=== PATIENT | female | born 1965 | race Caucasian/White ===

== ENCOUNTER → 2017-07-17 | Outpatient (CLI) | payer BC ==
--- NOTE | 2017-07-17 09:37 | MM ---
Reason for exam: screening (asymptomatic). Baseline mammogram. History: Patient is postmenopausal and had first child at age 33. Took hormonal contraceptives for 10 years. Physical Findings: Nurse did not find any significant physical abnormalities on exam. MG 3D Screening Mammo W/Cad Bilateral CC and MLO view(s) were taken. The breast tissue is heterogeneously dense. This may lower the sensitivity of mammography. There is no discrete abnormality. These results were verbally communicated with the patient and result sheet given to the patient on 07/17/17. ASSESSMENT: Benign, BI-RAD 2 RECOMMENDATION: Routine screening mammogram of both breasts in 1 year.
== END | disposition home or self-care (01) ==
LOC: RADMAMWWP 08:31
PROVIDERS: ATTEND Family Medicine
DX: Z12.31 Encounter for screening mammogram for malignant neoplasm of breast (principal)
CPT/HCPCS: 77063; 77067

== ENCOUNTER → 2017-07-24 | Outpatient (CLI) | payer BC ==
--- NOTE | 2017-07-24 23:20 | MR ---
EXAMINATION TYPE: MR shoulder RT wo con DATE OF EXAM: 07/24/2017 COMPARISON: NONE HISTORY: 51-year-old female Right shoulder pain TECHNIQUE: Multiplanar, multisequence imaging of the right shoulder is performed without contrast. FINDINGS: There is abnormal increased signal within the intracapsular portion of the long head biceps tendon. T he extracapsular portion remains appropriately situated along the bicipital groove with mild tenosyno vial fluid. Heterogeneous signal of the subscapularis tendon. The majority of the tendon remains intact. Moderate degenerative joint space narrowing of marginal spurring and capsular hypertrophy at the acro mioclavicular joint. No significant mass effect onto the underlying cuff. There is partial articular and bursal sided tear of the far anterior supraspinatus tendon measuring a pproximately 1 x 1 cm. No full-thickness supraspinatus tendon tear. Infraspinatus tendon is intact. Minimal fatty streaks within the subscapularis muscle. There is a mild subacromial/subdeltoid bursal effusion. Evaluation of the glenohumeral joint shows overall maintained articular cartilage without significant joint effusion. No discrete labral tear given nonarthrographic technique and no para labral cyst. No Hill-Sachs deformity or os acromiale. Patchy red marrow can be seen in setting of anemia, obesity, smoking, and chronic disease. IMPRESSION: 1. Supraspinatus and subscapularis tendinosis. There is some partial thickness tearing of the anterio r supraspinatus tendon measuring 1 cm. No full-thickness rotator cuff tear. 2. Abnormal signal within the intracapsular portion of long head biceps tendon could represent marked tendinosis or partial tear. Mild tenosynovitis along the extracapsular portion. 3. Moderate AC joint OA and mild subacromial/subdeltoid bursal effusion, reactive versus bursitis.
== END ==
LOC: RADMRIMAIN 11:37
PROVIDERS: ATTEND Family Medicine
DX: S46.011A Strain of muscle(s) and tendon(s) of the rotator cuff of right shoulder, initial encounter (principal); R93.7 Abnormal findings on diagnostic imaging of other parts of musculoskeletal system; M65.9 Synovitis and tenosynovitis, unspecified; M19.011 Primary osteoarthritis, right shoulder

== ENCOUNTER → 2019-07-22 | Day surgery (SDC) | payer BC ==
[2019-07-20 14:39] VITALS: BMI 30.1
[~2019-07-22] MED LIST: LIDOCAINE 1% 20 ML VIAL (10MG/ML) FOR IV START INTRADERMA PRN; LIDOCAINE 1% INJ 10MG/ML (20 ML MDV) ONE; PROPOFOL 10 MG/ML 20 ML VIAL IV ONE
--- NOTE | 2019-07-22 08:39 | P.GSHP ---
History of Present Illness H&P Date: 07/22/19 CHIEF COMPLAINT: Colon screen HISTORY OF PRESENT ILLNESS: The patient is a 53-year-old female who presents for colon screen. Lower endoscopy was offered for further evaluation and management. PAST MEDICAL HISTORY: Please see list. PAST SURGICAL HISTORY: Please see list. MEDICATIONS: Please see list. ALLERGIES: Please see list. SOCIAL HISTORY: No illicit drug use FAMILY HISTORY: No reports of Crohn disease or ulcerative colitis. REVIEW OF ORGAN SYSTEMS: CONSTITUTIONAL: No reports of fevers or chills. PHYSICAL EXAM: VITAL SIGNS: Stable GENERAL: Well-developed pleasant in no acute distress. HEENT: No scleral icterus. Extraocular movements grossly intact. Moist buccal mucosa. NECK: Supple without lymphadenopathy. CHEST: Unlabored respirations. Equal bilateral excursions. CARDIOVASCULAR: Regular rate and rhythm. Distal 2+ pulses. ABDOMEN: Soft, nontender, nondistended. MUSCULOSKELETAL: No clubbing, cyanosis, or edema. ASSESSMENT: 1. Colon screen. PLAN: 1. Recommend proceeding with a lower endoscopy Past Medical History Past Medical History: GERD/Reflux, Hypertension History of Any Multi-Drug Resistant Organisms: None Reported Past Surgical History: Cholecystectomy, Hysterectomy Past Anesthesia/Blood Transfusion Reactions: No Reported Reaction Smoking Status: Never smoker - Past Family History Mother Family Medical History: No Reported History Medications and Allergies Home Medications Medication Instructions Recorded Confirmed Type Nebivolol [Bystolic] 5 mg PO QAM 07/20/19 07/21/19 History Pantoprazole [Protonix] 40 mg PO QAM 07/20/19 07/21/19 History Biotin 10,000 mcg PO DAILY 07/21/19 07/21/19 History Cholecalciferol [Vitamin D3 (25 1,000 unit PO DAILY 07/21/19 07/21/19 History Mcg = 1000 Iu)] Cyanocobalamin (Vitamin B-12) 10,000 mcg PO DAILY 07/21/19 07/21/19 History [Vitamin B-12] [place]-3 Fatty Acids/Fish Oil [Fish 1 each PO DAILY 07/21/19 07/21/19 History Oil 1,000 mg Softgel] Allergies Allergy/AdvReac Type Severity Reaction Status Date / Time No Known Allergies Allergy Verified 07/20/19 14:32
[2019-07-22] MEDS: LACTATED RINGERS 1,000 ML IV SCH ×2 (09:50→09:56)
[2019-07-22 09:54] VITALS: TEMP 97.5
--- NOTE | 2019-07-22 10:24 | P.PCN ---
Date of Procedure: 07/22/19 Description of Procedure: PREOPERATIVE DIAGNOSIS: Colonoscopy screening, first POSTOPERATIVE DIAGNOSIS: Colonoscopy screening, first Diverticulosis, scattered. OPERATION: Colonoscopy to the ileocecal valve and appendiceal orifice. SURGEON: Sheridan Peña MD. ANESTHESIA: MAC. INDICATIONS: The patient is a 53-year-old female who presents for colonoscopy screening. Benefits and risks were described and informed consent was obtained. DESCRIPTION OF PROCEDURE: The patient had undergone Suprep. She had been brought into the operating room and laid in the left lateral decubitus position. After adequate intravenous sedation, the rectum was examined with 2% lidocaine jelly. External hemorrhoids were encountered. The rectal tone was within normal limits. No lesions were palpated in the rectal vault. An Olympus colonoscope was advanced until the ileocecal valve and appendiceal orifice were clearly viewed. The prep was excellent with clear visualization of the mucosal folds. The scope was removed with visualization of each mucosal fold. Scattered diverticulosis was encountered. No colonic polyps were found. No evidence of focal colitis was found. Retroflexion of the scope demonstrated grade 1 internal hemorrhoids without active bleeding or inflammation. The colon was desufflated. The patient had tolerated the procedure well. Procedural time was over 6 minutes. FINDINGS: Aronchick preparation quality scale 1 (1-5) Internal hemorrhoids, grade 1 External prolapsed hemorrhoids. No arteriovenous malformations. No adenomatous polyps. No focal colitis. Scattered diverticulosis RECOMMENDATIONS: Lower endoscopy in 10 years, 2030 or Cologaurd Plan - Discharge Summary Discharge Rx Participant: No New Discharge Prescriptions: No Action Pantoprazole [Protonix] 40 mg PO QAM Nebivolol [Bystolic] 5 mg PO QAM Cyanocobalamin (Vitamin B-12) [Vitamin B-12] 10,000 mcg PO DAILY Cholecalciferol [Vitamin D3 (25 Mcg = 1000 Iu)] 1,000 unit PO DAILY [place]-3 Fatty Acids/Fish Oil [Fish Oil 1,000 mg Softgel] 1 each PO DAILY Biotin 10,000 mcg PO DAILY Discharge Medication List Nebivolol [Bystolic] 5 mg PO QAM 07/20/19 [History] Pantoprazole [Protonix] 40 mg PO QAM 07/20/19 [History] Biotin 10,000 mcg PO DAILY 07/21/19 [History] Cholecalciferol [Vitamin D3 (25 Mcg = 1000 Iu)] 1,000 unit PO DAILY 07/21/19 [History] Cyanocobalamin (Vitamin B-12) [Vitamin B-12] 10,000 mcg PO DAILY 07/21/19 [History] [place]-3 Fatty Acids/Fish Oil [Fish Oil 1,000 mg Softgel] 1 each PO DAILY 07/21/19 [History] Follow up Appointment(s)/Referral(s): Sheridan Peña MD [STAFF PHYSICIAN] - As Needed Patient Instructions/Handouts: *Surgery [facility] - (Anesthesia) Endoscopy Discharge Instructions Activity/Diet/Wound Care/Special Instructions: Repeat colonoscopy 10 years, 2030 or Cologaurd Discharge Disposition: HOME SELF-CARE
[2019-07-22 10:25] VITALS: BP 130/83; PULSE 66
[2019-07-22 10:38] VITALS: RESP 18
== END | disposition home or self-care (01) ==
LOC: ORWHC2ENDO 09:20
PROVIDERS: ATTEND Surgery Plastic and Reconstructive Surgery
DX: Z12.11 Encounter for screening for malignant neoplasm of colon (principal); K57.30 Diverticulosis of large intestine without perforation or abscess without bleeding; K64.0 First degree hemorrhoids; K64.4 Residual hemorrhoidal skin tags; I10 Essential (primary) hypertension; K21.9 Gastro-esophageal reflux disease without esophagitis; Z90.710 Acquired absence of both cervix and uterus; Z79.899 Other long term (current) drug therapy
CPT/HCPCS: J2001; J2704; G0121

== ENCOUNTER → 2020-04-07 | Outpatient (CLI) | payer BC | END | disposition home or self-care (01) | LOC: LABWHC1 08:57 | PROVIDERS: ATTEND Family Medicine | DX: Z20.828 Contact with and (suspected) exposure to other viral communicable diseases (principal) | CPT/HCPCS: U0003; C9803 ==

== ENCOUNTER → 2020-04-19 | Outpatient (CLI) | payer BC | END | disposition home or self-care (01) | LOC: LABWHC1 12:31 | PROVIDERS: ATTEND Nurse Practitioner Family | DX: U07.1 COVID-19 (principal) | CPT/HCPCS: U0003; C9803 ==

== ENCOUNTER → 2021-03-29 | Outpatient (CLI) | payer BC ==
--- NOTE | 2021-03-29 12:10 | P.STRESS ---
- Stress Test Note Stress Test Results/Findings: Exam Performed: stress echo exercise with con Exam Date: 03/29/21 Reason for Exam: Chest pain Height: 5 ft 2 in Weight: 80.739 kg Protocol: Angel Stage: II Duration of Exercise: 6:00 Resting Heart Rate: 80 Resting Blood Pressure: 136/90 Maximum Achieved Heart Rate: 151 Maximum Achieved Blood Pressure: 216/97 85% PMHR: 142 100% PMHR: 167 METS: 7.3 Technologist Comment: Stress Test Results/Findings: This is a 55-year-old female with history of hypertension, hypercholesterolemia, being evaluated for symptoms of shortness of breath and palpitations. Stress data: Baseline EKG showed sinus rhythm with normal MI interval and QRS duration with incomplete right bundle branch block pattern. Blood pressure at rest is 136/90 with pulse rate of 80. Patient walked on the Angel protocol for about 6 minutes achieving a maximum heart rate of 151 with blood pressure 216/97. EKGs taken during and after exercise did not reveal any changes of ischemia. Patient did not experience any chest pain. Echo data: Baseline echo images show normal wall motion and thickening. Exercise echo images showed augmentation of wall motion and thickening in all the segments. Final impression: #1. Negative stress test #2. Negative stress echo.
--- NOTE | 2021-03-29 15:20 | EST ---
Stress Test Results/Findings: Exam Performed: stress echo exercise with con Exam Date: 03/29/21 Reason for Exam: Chest pain Height: 5 ft 2 in Weight: 80.739 kg Protocol: Angel Stage: II Duration of Exercise: 6:00 Resting Heart Rate: 80 Resting Blood Pressure: 136/90 Maximum Achieved Heart Rate: 151 Maximum Achieved Blood Pressure: 216/97 85% PMHR: 142 100% PMHR: 167 METS: 7.3 Technologist Comment: Stress Test Results/Findings: This is a 55-year-old female with history of hypertension, hypercholesterolemia, being evaluated for symptoms of shortness of breath and palpitations. Stress data: Baseline EKG showed sinus rhythm with normal ND interval and QRS duration with incomplete right bundle branch block pattern. Blood pressure at rest is 136/90 with pulse rate of 80. Patient walked on the Angel protocol for about 6 minutes achieving a maximum heart rate of 151 with blood pressure 216/97. EKGs taken during and after exercise did not reveal any changes of ischemia. Patient did not experience any chest pain. Echo data: Baseline echo images show normal wall motion and thickening. Exercise echo images showed augmentation of wall motion and thickening in all the segments. Final impression: #1. Negative stress test #2. Negative stress echo. NASH
== END | disposition home or self-care (01) ==
LOC: RADNMMAIN 09:17
PROVIDERS: ATTEND Family Medicine
DX: R06.02 Shortness of breath (principal); R00.2 Palpitations
CPT/HCPCS: 93351; Q9950

== ENCOUNTER → 2022-06-01 | Outpatient (CLI) | payer BC ==
--- NOTE | 2022-06-01 09:24 | CT ---
EXAMINATION TYPE: CT brain w con CT DLP: 1144.01 mGycm, Automated exposure control for dose reduction was used. DATE OF EXAM: 06/01/2022 9:16 AM COMPARISON: CT neck of the same date. CLINICAL INDICATION:Female, 56 years old with history of R13.12 DYSPHAGIA, OROPHARYNGEAL PHASE; TECHNIQUE: Axial CT images of the brain were obtained after the uneventful administration of 70 mL of Isovue-[address] or more CT dose reduction strategies were utilized during this examina tion. FINDINGS: Extra-axial spaces: No abnormal extra-axial fluid collections. Ventricular system: Within normal limits Cerebral parenchyma: No acute intraparenchymal hemorrhage or mass effect. The medina-white junction is well differentiated. No abnormal enhancement is seen after the administration of intravenous contras t. Cerebellum: Unremarkable. Mass effect: No evidence of midline shift. Intracranial vasculature: unremarkable Soft tissues: Normal. Calvarium/osseous structures: No depressed skull fracture. Paranasal sinuses and mastoid air cells: The mastoid air cells are clear. Minimal mucosal thickening of the right maxillary sinus. Minimal mucosal thickening of the left posterior ethmoid sinus. Visualized orbits: Orbital contents are intact. IMPRESSION: No acute intracranial process or abnormal contrast enhancement.
--- NOTE | 2022-06-01 09:28 | CT ---
EXAMINATION TYPE: CT soft tissue neck w con CT DLP: 649.20 mGycm, Automated exposure control for dose reduction was used. DATE OF EXAM: 06/01/2022 9:16 AM COMPARISON: CT brain the same date.. CLINICAL INDICATION:Female, 56 years old with history of R13.12 DYSPHAGIA, OROPHARYNGEAL PHASE; PHH, Dysphagia TECHNIQUE: Standard enhanced CT of the neck following intravenous administration of 100 cc of Isovue 300. Axial sections with coronal and sagittal reformats were obtained. FINDINGS: Brain: Visualized portions are grossly unremarkable. Orbits: Unremarkable Suprahyoid Neck: The oropharynx, oral cavity, parapharyngeal and retropharyngeal spaces are clear and symmetric. The nasopharynx is unremarkable. Infrahyoid Neck: The larynx, hypopharynx, and supraglottic area are clear and symmetric. Parotid Glands: Unremarkable. Submandibular Glands: Unremarkable. Musculoskeletal: No acute osseous pathology. Lymph nodes: Multiple nonenlarged lymph nodes are seen along both anterior chains of the neck. Vascular structures: Visualized major arteries are patent without evidence of aneurysm. Thoracic Inlet/airway: Airway is patent. The lung apices are clear. Soft tissues/Thyroid: Thyroid and remainder of the soft tissues are unremarkable. Other: none. IMPRESSION Unremarkable examination without CT evidence for patient's symptomology.
== END | disposition home or self-care (01) ==
LOC: RADCTMAIN 07:22
PROVIDERS: ATTEND Family Medicine
DX: R13.12 Dysphagia, oropharyngeal phase (principal)
CPT/HCPCS: 70491; 70460; Q9967

== ENCOUNTER → 2022-09-04 | Outpatient (CLI) | payer BC ==
--- NOTE | 2022-09-05 18:13 | MM ---
Reason for Exam: Screening (asymptomatic). Last mammogram was performed 5 year(s) and 2 month(s) ago. Patient History: Menarche at age 16. First Full-Term at age 33. Late child-bearing (after 30). Hysterectomy at age 44. Postmenopausal. Patient used Hormonal Contraceptives for 10 years. Risk Values: Jes 5 year model risk: 1.4%. NCI Lifetime model risk: 10.4%. Prior Study Comparison: 07/17/2017 Bilateral Screening Mammogram, [facility]. Tissue Density: There are scattered fibroglandular densities. Findings: Analyzed By CAD. There is no suspicious group of microcalcifications or new suspicious mass in either breast. Overall Assessment: Negative, BI-RAD 1 Management: Screening Mammogram of both breasts in 1 year. 1. Patient should continue monthly self breast exams. 2. A clinical breast exam by your physician is recommended on an annual basis. 3. This exam should not preclude additional follow-up of suspicious palpable abnormalities. Electronically signed and approved by: Alexandre Sauer M.D. Radiologist
== END | disposition home or self-care (01) ==
LOC: RADMAMWWP 15:43
PROVIDERS: ATTEND Family Medicine
DX: Z12.31 Encounter for screening mammogram for malignant neoplasm of breast (principal); Z78.0 Asymptomatic menopausal state
CPT/HCPCS: 77067

== ENCOUNTER → 2023-07-31 | Outpatient (CLI) | payer BC ==
--- NOTE | 2023-07-31 15:19 | CT ---
EXAMINATION TYPE: CT abdomen pelvis wo con DATE OF EXAM: 07/31/2023 COMPARISON: 03/18/2013 HISTORY: R10.9 Right flank pain Examination of the solid and hollow viscera is limited given the lack of contrast. FINDINGS: LUNG BASES: No evidence for nodule. No evidence for infiltrate. Calcified granuloma right lower lobe. LIVER/GB: The gallbladder is unremarkable. No space-occupying hepatic lesion. PANCREAS: No pancreatic mass identified. No inflammatory process seen. SPLEEN: No evidence for splenomegaly. No intrasplenic lesions seen. ADRENALS: No adrenal nodules identified. No evidence for thickening. KIDNEYS: No evidence for renal mass. Nonobstructing 3 mm calculus lower pole right kidney. 2 mm calcu favian upper pole right kidney. 5 mm nonobstructing calculus upper pole left kidney with adjacent 2 mm c alculus. 5.5 mm calculus left renal pelvis. Sub-3 mm calculi lower pole left kidney. No hydronephrosi s. BOWEL: Appendix has a normal appearance. No evidence of bowel obstruction. No inflammatory process. S igmoid diverticulosis without diverticulitis. Lymph nodes: No evidence for adenopathy greater than 1 cm. Abdominal aorta: Atheromatous changes seen. No evidence for aneurysm. Genital organs: No significant abnormality. Other: No significant abnormality. IMPRESSION: 1. Nonobstructing nephrolithiasis Bilateral kidneys.
== END ==
LOC: RADCTMAIN 14:09
PROVIDERS: ATTEND Family Medicine
DX: N20.0 Calculus of kidney (principal)
CPT/HCPCS: 74176

== ENCOUNTER → 2024-04-10 | Outpatient (CLI) | payer BC ==
--- NOTE | 2024-04-10 12:35 | MM ---
Reason for Exam: Screening (asymptomatic). Last mammogram was performed 1 year(s) and 7 month(s) ago. Patient History: Menarche at age 16. First Full-Term at age 33. Late child-bearing (after 30). Hysterectomy at age 44. Postmenopausal. Patient used Hormonal Contraceptives for 10 years. Paternal aunt had breast cancer, age 50. Risk Values: Jes 5 year model risk: 1.6%. NCI Lifetime model risk: 10.0%. Prior Study Comparison: 07/17/2017 Bilateral Screening Mammogram, [facility]. 09/04/2022 Bilateral MG screening mammo w CAD, [facility]. Tissue Density: There are scattered areas of fibroglandular density. Findings: Analyzed By CAD. Right breast: There is no suspicious group of microcalcifications or new suspicious mass. Left breast: There is no suspicious group of microcalcifications or new suspicious mass. Overall Assessment: Negative, BI-RAD 1 Management: Screening Mammogram of both breasts in [address] [facility] will attempt to contact patient to return for supplemental views and ultrasound if indicated. Patient should continue monthly self-breast exams. A clinical breast exam by your physician is recommended on an annual basis. This exam should not preclude additional follow-up of suspicious palpable abnormalities. Note on Jes scores and lifetime risk: 1. A Jes score greater than 3% is considered moderate risk. If this is the case, consider specialist referral to assess eligibility for a risk reducing agent. 2. If overall lifetime risk for the development of breast cancer is 20% or higher, the patient may qualify for future screening with alternating mammogram and breast MRI. [facility], , 04/10/2024 12:33 PM. Electronically signed and approved by: David Williamson DO
== END | disposition home or self-care (01) ==
LOC: RADMAMWWP 09:40
PROVIDERS: ATTEND Family Medicine
CPT/HCPCS: 77067